=== PATIENT | female | born 2000 | race Caucasian/White ===

== ENCOUNTER → 2024-12-28 13:16 | Outpatient (CLI) | payer OTHER, SELFPAY ==
[2024-12-28 14:14] LABS: Add Manual Diff / Slide Review NO; Basophils Absolute Auto 0 /uL (0-100); Basophils Percent Auto 0.2 % (0-2); Eosinophils Absolute Auto 100 /uL (0-450); Eosinophils Percent Auto 0.6 % (2-4); Hematocrit 38.7 % (36-46); Hemoglobin 13.1 g/dL (12.0-16.0); Lymphocytes Absolute Auto 1700 /uL (1100-4500); Lymphocytes Percent Auto 19.5 % (25-40); Mean Corpuscular HGB Conc 33.8 % (30-36); Mean Corpuscular Hemoglobin 27.7 PG (26-34); Mean Corpuscular Volume 81.9 fL (80-100); Monocytes Absolute Auto 500 /uL (0-900); Monocytes Percent Auto 5.5 % (3-14); Neutrophils Absolute Auto 6600 /uL (1500-7000); Neutrophils Percent Auto 74.2 % (50-75); Platelet Count 273 X10^3/uL (150-400); Red Blood Cell Count 4.72 X10^6/uL (4.0-5.2); Red Cell Distribution Width 13.2 % (11.6-14.8); White Blood Cell Count 8.9 X10^3/uL (4.5-11.0)
[2024-12-28 14:26] LABS: Natera Collection Specimen Collected
[2024-12-28 14:49] LABS: Appearance Urine UA CLEAR; Bilirubin Urine UA NEGATIVE (NEGATIVE); Color Urine UA YELLOW; Glucose Urine UA NEGATIVE (Negative); Ketones Urine UA NEGATIVE (NEGATIVE); Leukocyte Esterase Urine UA NEGATIVE (NEGATIVE); Nitrite Urine UA NEGATIVE (Negative); Occult Blood Urine UA NEGATIVE (Negative); Protein Urine UA NEGATIVE (Negative); Urobilinogen Urine UA 0.2 E.U./dL (0.2)
[2024-12-28 14:50] LABS: pH Urine UA 7.5 (4.5-8.0)
[2024-12-29 14:49] LABS: Rubella Antibody IgG 14.9 IU/mL (>15)
[2024-12-29 14:51] LABS: Hepatitis B Surface Antigen NEGATIVE s/c (NEGATIVE)
[2024-12-29 15:02] LABS: HIV 1 & 2 Ab/Ag 4th Gen Combo NEGATIVE (NEGATIVE)
[2024-12-29 15:09] LABS: Hep C Virus Ab w/Reflex Quant NEGATIVE s/c (NEGATIVE)
[2024-12-30 08:36] LABS: Varicella IgG Antibody Reactive (Non Reactive)
== END ==
LOC: LAB 13:17
PROVIDERS: Referring Provider Family Medicine; Visit Provider Family Medicine
DX: Z34.80 Encounter for supervision of other normal pregnancy, unspecified trimester (principal)
CPT/HCPCS: 36415; 80055; 81003; 86787; 86803; 86850; 86900; 86901; 87086; 87389

== ENCOUNTER → 2025-02-22 06:45 | Outpatient (CLI) | payer OTHER, SELFPAY ==
--- NOTE | 2025-02-22 06:46 | DI.US.S_ITS ---
PROCEDURE: US OB >= 14 WEEKS FETUS INDICATIONS: anatomy scan OUTSIDE/PRIOR DATING DATA: Last menstrual period (LMP): 09/23/24. LMP-based estimated date of delivery (HEATHER): 06/30/25. First dating scan (date and location): Not available. Estimated date of delivery (HEATHER) from first dating scan: Not applicable. The calculations are made using the working HEATHER of 07/16/25. TECHNIQUE: Real-time scanning was performed of the fetus, with image documentation and biometric measurements. Endovaginal scanning: No COMPARISON: None. FINDINGS: General: A single living intrauterine gestation is present. Presentation: Vertex. Placenta: Placental position is posterior , without previa. Amniotic fluid index: 11.8 cm, normal range is 5-24 cm. Single deepest vertical pocket is 3.5 cm. heart rate: 150 beats per minute. Maternal cervical canal: Closed and 4.7 cm long. Normal lower limit is 2.5 cm. biometrics: Biparietal diameter: 4.5 cm, 19 weeks four days Head circumference: 16.2 cm, 19 weeks 0 days Abdominal circumference: 13.5 cm, 19 weeks 0 days Femur length: 3.1 cm, 19 weeks four days Clinically estimated gestational age: 19 weeks three days Composite gestational age from present scan: 19 weeks two days Estimated weight and percentile: 279 g, 32nd percentile Anatomic survey: Neuro: Ventricles are non-dilated at less than 10 mm. Cisterna magna is normal at 3-11 mm. Cerebellum is normal in size and morphology. Nuchal skin fold: Normal at less than 6 mm between 14-21 weeks gestational age. Face: Nose and lips, facial profile are normal. Spine: No evidence for spina bifida. Heart: 4-chambered heart is present, with normal ventricular outflow tracts. Diaphragm: Diaphragm is intact. Stomach: Left-sided stomach is present. Kidneys: No hydronephrosis. Normal is less than 5 mm in 2nd trimester, less than 7 mm in 3rd trimester. Cord: 3-vessel cord has orthotopic insertion. Bladder: Normal in size. Extremities: All 4 extremities identified. IMPRESSION: Single living intrauterine with estimated weight at the 32nd percentile. Composite gestational age in good agreement with the expected gestational age. Symmetric growth and normal anatomy. Closed cervix and normal amniotic fluid volume. We strive to produce accurate, complete, and clear reports of imaging services. To assist us in improving patient care, this report was composed using standard report templates and voice recognition software. Therefore, it may contain abnormal punctuation, insertions and/or omissions. Occasional wrong-word or sound-alike substitutions may occur. Though we review the report and make efforts to correct it, we do recommend that the report be read carefully in proper context to recognize any text inaccuracies. Dictated by: Yaa Zeng M.D. on 02/22/2025 at 14:10 Approved by: Yaa Zeng M.D. on 02/22/2025 at 14:13
== END ==
LOC: US 06:45
PROVIDERS: Referring Provider Family Medicine; Visit Provider Family Medicine
DX: Z34.82 Encounter for supervision of other normal pregnancy, second trimester (principal); Z3A.19 19 weeks gestation of pregnancy
CPT/HCPCS: 76811

== ENCOUNTER → 2025-02-27 11:16 | Outpatient (CLI) | payer OTHER, SELFPAY ==
[2025-02-27 12:16] LABS: Free T4, Direct Thyroxine 0.95 ng/dL (0.78-2.19)
[2025-02-27 12:30] LABS: Thyroid Stimulating Hormone 1.06 uIU/mL (0.47-4.68)
== END ==
PROVIDERS: Referring Provider Family Medicine; Visit Provider Family Medicine
DX: L65.9 Nonscarring hair loss, unspecified (principal)
CPT/HCPCS: 36415; 84439; 84443

== ENCOUNTER → 2025-04-01 11:46 | Outpatient (CLI) | payer OTHER, SELFPAY ==
[2025-04-01 14:18] LABS: Hematocrit 33.5 % (36-46); Hemoglobin 11.2 g/dL (12.0-16.0); Mean Corpuscular HGB Conc 33.5 % (30-36); Mean Corpuscular Hemoglobin 28.4 PG (26-34); Mean Corpuscular Volume 84.7 fL (80-100); Platelet Count 240 X10^3/uL (150-400)
[2025-04-01 14:20] LABS: GTT (PREG) 1 Hour PP 50gm Dose 103 mg/dL (76-139)
== END ==
PROVIDERS: Referring Provider Family Medicine; Visit Provider Family Medicine
DX: Z34.80 Encounter for supervision of other normal pregnancy, unspecified trimester (principal)
CPT/HCPCS: 36415; 82950; 85027

== ENCOUNTER → 2025-06-19 13:35 | Outpatient (CLI) | payer OTHER, SELFPAY ==
[2025-06-20 10:40] LABS: Strep Grp B PCR NEG for Grp B Strep
== END ==
PROVIDERS: PCP Family Medicine; Visit Provider Family Medicine
DX: Z36.85 Encounter for antenatal screening for Streptococcus B (principal)
CPT/HCPCS: 87653

== ENCOUNTER 2025-07-01 09:02 | Inpatient (IN) | payer OTHER, SELFPAY ==
--- NOTE | 2025-07-01 09:33 | PM.OBHP.IH.1 ---
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 Patient is scheduled for primary elective and still wishes to proceed elective . has been otherwise uncomplicated. Low risk baby girl Miya care: good care Dating criteria OB: based on LMP only Ultrasounds: normal 1st trimester US Obstetrical complications: none Medical complications OB: none Preadmission Labs Last OB Lab Results: Blood Type A Positive 12/28/24, 13:23 Antibody Screen Negative 12/28/24, 13:23 Hct, (36-46) 33.5 % L 04/01/25, 13:23 Hgb, (12.0-16.0) 11.2 g/dL L 04/01/25, 13:23 Hep Bs Antigen, (NEGATIVE) Negative s/c 12/28/24, 13:23 Hepatitis C Antibody, (NEGATIVE) Negative s/c 12/28/24, 13:23 Rubella Antibody, (>15) 14.9 IU/mL L 12/28/24, 13:23 VZV IgG Antibody, (Non Reactive) Reactive 12/28/24, 13:23 Glucose 1 Hr 50 gm, (76-139) 103 mg/dL 04/01/25, 13:23 Group B Strep (PCR) Neg for grp b strep 06/19/25, 13:35 Glucose Tolerance Testin hr (103) Genetic Screens: Cell-free DNA: Normal (Baby Girl Miya ) Prior (ies) Past Pregnancies Del. Date GA/Weeks Labor Lgth Wt Sex Route Outcome Anesthesia Place Delv Breastfeed Preg Comp Name 10/05/19 6-7 elective Delivery Date: 10/05/19 Last Updated by: Elsa Forbes RN D&C, no complications Evaluation Evaluation Baseline heart rate: 150 Variability: Moderate (6-25) monitor accelerations: Present Monitor Decelerations: Absent Contraction Frequency (minutes): 2 Uterine Contraction Intensity: Strong/Firm Category of Tracing: Reactive Status: Category l Dilation (cm): 4 Dilation: 3-4 cm Non-invasive Membranes Rupture Test: positive [facility] Surgical History (Updated 12/19/24 @ 15:34 by Elsa Forbes RN) No pertinent past surgical history Family History (Updated 12/19/24 @ 15:36 by Elsa Forbes RN) Grandmother Diabetes mellitus Grandfather Pacemaker Skin cancer Social History marital status: unmarried,living together number of children: 3 household members: significant other and children lives independently: Yes caregiver/support person: Yes housing: house pets and animals: Yes (dogs & cat) education level: high school occupational status: employed 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, 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) special amarilys needs: No travel history: recent seatbelt use: always water heater temp set < 120 deg: Yes working smoke detector in home: Yes fire extinguisher in home: Yes carbon monox detector in home: Yes firearms in home: Yes firearms unloaded and locked: Yes do you feel safe at home: Yes Tobacco: How many years used: 6 quit status: has quit before second hand exposure: No alcohol intake: former substance use type: does not use during the past year weight has: remained stable well-balanced diet: rarely or never daily servings fruits/ve-1 caffeine: No Type(s) of exercise: other Meds Home Medications and Allergies Home Medications ?Medication ?Instructions ?Recorded ?Confirmed ?Type vitamin-ferrous sulfate tab PO 12/19/24 05/10/25 History 27 mg iron-folic acid 0.8 mg tablet Allergies Allergy/AdvReac Type Severity Reaction Status Date / Time No Known Drug Allergies Allergy Unverified 05/10/25 08:59 Review of Systems Review of Systems Narrative: + LOF + contractions + FM OB Exam Vital signs Blood Pressure: 121/79 Pulse Rate: 75 Narrative Exam Narrative: GEN: uncomfortable appearing, breathing through contractions Pulm: breathing comfortably on RA ABd: gravid MSK: laying in bed, moving all extremities neuro: non-focal Assessment and Plan Assessment and Plan Assessment and Plan narrative: 25-year-old presenting at 37 weeks 6 days with spontaneous onset of labor starting this morning around 4:30 a.m. has been complicated. Patient is scheduled for primary elective and still wishes to proceed elective . At this time, will plan for primary elective CS but will check SVE before starting procedure to determine if would be more appropriate. # SIUP at term: - admit to LD - continuous monitoring - Ancef fo rsurgical ppx and Azithro for ROM - Anesthesia consult for epidural to be placed BARNEY - CBC, TS - cephalic by bedside US - GBS negative - Low risk baby girl Miya. counseling: It was explained to the patient that a section is a surgery to deliver the baby through an incision in the abdominal wall and uterus.? All procedures can be associated with risk and unforeseen complications, which can be immediate or delayed.? Risks and complications of section include, but are not limited to:? infection of the uterus, pelvic organs, or skin; inadvertent injury to internal organs such as the bowel, bladder, or possibly even the baby; blood loss, transfusion, and/or life-threatening hemorrhage requiring hysterectomy; blood clots in the legs, pelvic organs, or lungs; adverse reaction to medications or anesthesia during surgery; development of placenta accreta spectrum in a subsequent ; and increased risk of section in a subsequent . Time-Based Coding :: [TOTAL MINUTES] spent with patient and on the chart (including review of chart, obtaining history, exam, reviewing outside data, placing orders, documenting exam and treatment plan, and counseling patient) on [DATE].
[2025-07-01 09:57] VITALS: BP 121/79; PULSE 75
[2025-07-01 10:08] LABS: Add Manual Diff / Slide Review NO; Hematocrit 39.4 % (36-46); Hemoglobin 13.2 g/dL (12.0-16.0); Lymphocytes Absolute Auto 1400 /uL (1100-4500); Mean Corpuscular HGB Conc 33.5 % (30-36); Mean Corpuscular Hemoglobin 27.7 PG (26-34); Mean Corpuscular Volume 82.6 fL (80-100); Platelet Count 221 X10^3/uL (150-400)
--- NOTE | 2025-07-01 10:53 | P.PCN_ITS ---
Regional Block Pre-procedure Procedure: Continuous Lumbar Epidural for L&D Attending OB provider: Mariaelena Vo PMH/ROS narrative: at 37+6 with spontaneous onset of labor starting this morning. Patient is scheduled for primary elective and still wishes to proceed elective C- section. has been otherwise uncomplicated. No medical or obstetric complications. ASA Class: II Labs: Hct 39.4 % (36-46) 07/01/25 09:50 Plt Count 221 X10^3/uL (150-400) 07/01/25 09:50 Medications: Current Medications Generic Name Dose Route Start Last Admin Trade Name Freq PRN Reason Stop Dose Admin Carboprost Tromethamine 250 mcg 07/01/25 09:34 Carboprost 250 Mcg/Ml Ampul IM Q90M PRN Bleeding Oxytocin/Lactated Ringer's 30 unit in 500 mls @ 200 mls/hr 07/01/25 09:34 Oxytocin Premix IV CONT PRN Bleeding Protocol Tranexamic Acid 1,000 mg/ 100 mls @ 600 mls/hr 07/01/25 09:34 Sodium Chloride IV NOW PRN Bleeding Lactated Ringer's 1,000 mls @ 100 mls/hr 07/01/25 09:45 Lactated Ringers IV 07/01/25 19:44 CONT SAMMIE Oxytocin/Lactated Ringer's 30 unit in 500 mls @ 200 mls/hr 07/01/25 09:39 Oxytocin Premix IV CONT PRN Bleeding Protocol Lidocaine HCl 20 ml 07/01/25 09:34 Lidocaine 1% 20 Ml INJ INTRA-OP PRN Post Delivery Methylergonovine Maleate 0.2 mg 07/01/25 09:34 Methylergonovine 0.2 Mg Tablet PO Q6HR PRN Heavy Bleeding Methylergonovine Maleate 0.2 mg 07/01/25 09:34 Methylergonovine 0.2 Mg/Ml Vial IM NOW PRN Bleeding Mineral Oil 30 ml 07/01/25 09:34 Mineral Oil 30 Ml Udc TOP PRN PRN Version Misoprostol 800 mcg 07/01/25 09:34 Misoprostol 200 Mcg Tablet NC NOW PRN Bleeding Misoprostol 400 mcg 07/01/25 09:34 Misoprostol 200 Mcg Tablet SL NOW PRN Bleeding Naloxone HCl 0.2 mg 07/01/25 09:34 Naloxone 0.4 Mg/Ml Vial IV Q2MIN PRN Opiate Reversal Oxytocin 10 unit 07/01/25 09:34 Oxytocin 10 Unit/Ml Vial IM NOW PRN Bleeding Oxytocin 10 unit 07/01/25 09:39 Oxytocin 10 Unit/Ml Vial IM NOW PRN Bleeding Allergies: Allergies Allergy/AdvReac Type Severity Reaction Status Date / Time No Known Drug Allergies Allergy Unverified 05/10/25 08:59 Procedure Insertion date: 07/01/25 Insertion time: 10:10 Prep/Local: betadine x3 and 1% lidocaine Interspace: L34 Patient position: sitting Needle: 18 gauge Hustead (CSE: 27g Pencan through Hustead, clear CSF, 1mL 0.25% bupiv) Loss of resistance with: saline HERMILA at (cm): 5 Catheter placed at SKIN (cm): 10 Catheter in SPACE (cm): 5 Insertion: No CSF, No Blood, No Paresthesia with insertion, No Paresthesia with injection and No Test dose reaction Initial Medications TEST DOSE time: 10:11 TEST DOSE: 1.5% lidocaine with epinephrine 1:200k (mL): 3 Infusion INFUSION: 0.125% bupivacaine and with fentanyl 2 mcg/mL Initial rate (mL/hr): 8 Subsequent interventions: infusion started at 1200. Rate to 10 at 16:30. Pushing. Post-procedure Anesthesia date START: 07/01/25 Anesthesia time START: 10:00 Anesthesia date END: 07/01/25 Anesthesia time END: 17:25 Post-procedure Anesthesia Assessment: Yes CV function: HR/BP stable, Yes Resp function: RR/sat/airway adequate, Yes Post-op hydration adequate, Yes Pain control adequate, Yes Nausea & vomiting absent, Yes Temperature > 36 C, Yes Mental status appropriate and No Anesthesia complications
[2025-07-01] MEDS: LACTATED RINGERS 1,000 ML 100 ML IV ×2 (11:15→16:05)
--- NOTE | 2025-07-01 17:53 | PM.OBPRVD ---
Labor & Delivery Delivery date: 07/01/25 Delivery Time: 17:14 Intrapartal Events: None Cervical ripening method: none Induction method: none Delivery monitor: external FHT Route of delivery: L&D Laceration Description: Labial (R labial ) Estimated blood loss (mL): 200 Anesthesia Type: Spinal and Epidural (combined spinal epidural) Narrative: PROCEDURE: 25 yo at 37w6d presented with KHADIJAH and SORM and was admitted to Labor and Delivery. Initially she would planned for a primary elective . On arrival 4 cm. Due to unavailability of the operating room, epidural was placed for pain control and patient was managed expectantly. While awaiting availability of the operating room, patient achieved complete cervical dilation so decision made to attempt vaginal delivery. The patient progressed and delivered a viable female infant with APGARs 8/9 at 17:14 via CARLIE. The cord was cut and clamped after 60 second delay. The placenta delivered with gentle cord traction, and appeared complete. The perineum and vagina were inspected with a shallow labial laceration which was hemostatic and did not require repair. Needle and sponge counts were correct.? The vagina was inspected and no items were left in situ. PREPROCEDURE DIAGNOSIS: Intrauterine at 37w6d Rubella nonimmune GBS negative RH positive POSTPROCEDURE DIAGNOSIS: Intrauterine at 37w6d, delivered Same as preprocedure [place] Baby Miya [place]: Infant gender: Female Presentation: vertex Position: Right Occiput Anterior Placenta delivery description: Spontaneous Cord Vessel Description: 3 Vessels score (1 min): 8 score (5 min): 9 Plan for aftercare: Routine care
[2025-07-01] MEDS: LANOLIN OINT 7 GM 1 APPLIC TOP (20:39)
[2025-07-01] MEDS: DERMOPLAST SPRAY 20% 60 ML 1 SPRAY TOP (20:40)
[2025-07-01] MEDS: IBUPROFEN 600 MG TABLET PO (21:49)
[2025-07-02] MEDS: ACETAMINOPHEN 325 MG TABLET 650 MG PO (04:23)
--- NOTE | 2025-07-02 08:14 | P.DS_ITS ---
Discharge Providers Provider Date of admission: 07/01/25 09:02 Discharge Date: 07/02/25 Consults: 07/01/25 18:33 Consult to Manager [employer]almer Funeral Director Routine Comment: Discharge provider: Mariaelena Vo MD Summary Hospital Course Hospital Course: 25 yo at 37w6d presented with KHADIJAH and SORM and was admitted to Labor and Delivery. Initially she would planned for a primary elective . On arrival 4 cm. Due to unavailability of the operating room, epidural was placed for pain control and patient was managed expectantly. While awaiting availability of the operating room, patient achieved complete cervical dilation so decision made to attempt vaginal delivery. The patient progressed and delivered a viable female with APGARs 8/9 at 17:14 via CARLIE. The cord was cut and clamped after 60 second delay. The placenta delivered with gentle cord traction, and appeared complete. The perineum and vagina were inspected with a shallow labial laceration which was hemostatic and did not require repair. She is doing well PP, pain minimal. She has voided and is ambulating without difficulty Peripartum Data Laceration Description: Labial complications: none leandro anglin: Gender: Female Disposition of : home Time Spent with Patient Time attestation: Total time spent providing and/or coordinating discharge services: Time spent: Less than 30 minutes Objective Labs 07/01/25 09:50 Labs: Laboratory Results - last 24 hr 07/01/25 09:50 WBC 14.4 H RBC 4.77 Hgb 13.2 Hct 39.4 MCV 82.6 MCH 27.7 MCHC 33.5 RDW 13.5 Plt Count 221 Neut % (Auto) 86.1 H Lymph % (Auto) 9.7 L Toole % (Auto) 3.6 Eos % (Auto) 0.2 L Baso % (Auto) 0.4 Neut # (Auto) 38295 H Lymph # (Auto) 1400 Toole # (Auto) 500 Eos # (Auto) 0 Baso # (Auto) 100 Blood Type A Positive Antibody Screen Negative Exam Narrative Exam Narrative: GEN: Healthy appearing, well-developed, NAD. PSYCH: Good Judgment. AOx3. Normal memory, mood, and affect HEENT: -Head: NC/AT -Eyes: No discharge or redness CV: warm and well perfused LUNGS: breathing comfortably on RA SKIN: Warm, well perfused. No skin rashes or abnormal lesions MSK: No deformities NEURO: No focal deficits Discharge Plan Discharge Plan Patient Disposition: Home Discharge orders & Medications Prescriptions: Continued vit-ferrous sulfat-FA 27 mg iron- 0.8 mg tablet 1 tab PO DAILY Follow up/Referrals: Mariaelena Vo MD [Physician, Family Practice] Referral Note: Please follow-up with Dr. Vo on August 16 @1200pm for a 6 week visit. Visit Report/Discharge Packet Stand Alone Forms: Patient Portal/API, Stroke Signs & Symptoms
[2025-07-02] MEDS: PRENATAL VIT,CALC/IRON/FOLIC 1 TABLET 1 TAB PO (09:06)
[2025-07-02 17:04] VITALS: TEMP 36.2
[2025-07-02] MEDS: IBUPROFEN 600 MG TABLET PO (17:04)
== END 2025-07-02 17:20 | disposition home or self-care (01) | DRG 560 ==
PROVIDERS: Admitting Provider Family Medicine; Referring Provider Family Medicine; Visit Provider Family Medicine
DX: O80 Encounter for full-term uncomplicated delivery (principal); Z3A.37 37 weeks gestation of pregnancy; Z37.0 Single live birth
CPT/HCPCS: 36415; 59050; 85025; 86850; 86900; 86901; G0379; J7120